=== PATIENT | female | born 1940 | race Caucasian/White ===

== ENCOUNTER 2019-02-02 11:10 | Emergency (ER) | payer MEDICARE, OTHER, SELFPAY ==
[2019-02-02 11:23] VITALS: BP 170/78; PULSE 66; RESP 20; TEMP 36.3; O2SAT 98
--- NOTE | 2019-02-02 11:34 | ED.GENADULT ---
HPI - General Adult General Chief complaint: Dizziness Stated complaint: dizzy Time Seen by Provider: 02/02/19 11:26 Source: patient Mode of arrival: ambulatory Limitations: no limitations History of Present Illness HPI narrative: Patient is a 78-year-old female sent over from her primary doctor's office for ?tests ?patient does not know specifically what tests they were requesting. She went to her primary doctor this morning because she was feeling lightheaded. She also has had for the past several weeks if not months lower extremity weakness and left-sided weakness. She also states that she has had the lightheadedness for the past several weeks as well. She has had bilateral lower extremity weakness for years. She states she normally does water aerobics and she noticed yesterday she was having more difficulty doing this. This is what prompted her to come to the primary doctor's office this morning. With regard to the lightheadedness patient does not describe any positional component. Does not have a room spinning component. No chest pain or shortness of breath. Has never passed out. Related Data Home Medications Medication Instructions Recorded Confirmed aspirin 81 mg PO DAILY #0 04/22/12 02/02/19 acetaminophen 500 mg PO BID #0 05/24/16 10/15/18 benzocaine [Anbesol (benzocaine)] 10 % MUCOUS MEMBRANE #0 05/24/16 10/15/18 diphenhydramine HCl [Benadryl 25 mg PO HS #0 05/24/16 10/15/18 Allergy] Respironics System One 60 Series #1 ea 10/15/18 10/15/18 BIPAP bupropion HCl 150 mg PO BID 02/02/19 02/02/19 carvedilol 6.25 mg PO BID 02/02/19 02/02/19 levothyroxine [Synthroid] 88 mcg PO DAILY 02/02/19 02/02/19 metformin 500 mg PO BID 02/02/19 Allergies Allergy/AdvReac Type Severity Reaction Status Date / Time Sulfa (Sulfonamide Allergy Severe Unkown Verified 10/15/18 14:44 Antibiotics) [SULFA (SULFONAMIDE ANTIBIOTICS)] niacin [NIACIN] AdvReac Mild FLUSH Verified 10/15/18 14:44 Review of Systems Constitutional Denies fatigue, Denies fever(s), Denies headache(s) and Reports weakness ENT Ears, Nose, Mouth, and Throat: Denies vertigo, Reports dizziness, Denies headache(s) and Reports disequilibrium Cardiovascular Denies chest pain and Denies dyspnea Respiratory Denies cough and Denies dyspnea Gastrointestinal Gastrointestinal: Denies abdominal pain, Denies nausea and Denies vomiting Musculoskeletal Denies myalgias, Denies arthralgias, Denies muscle cramps and Reports muscle weakness Integumentary/Breasts Denies lesions and Denies rash Neurologic Denies behavioral changes, Denies confusion, Denies vertigo, Reports dizziness, Denies headache(s), Denies paresthesias, Reports disequilibrium and Reports weakness Psychiatric Denies behavioral changes and Denies confusion Endocrine Denies fatigue Hematologic/Lymphatic Denies easy bleeding and Denies easy bruising Allergic/Immunologic Denies urticaria [facility] Medical History Dyslipidemia (Chronic) H/O post-polio syndrome (Chronic) HTN (hypertension) (Chronic) Obstructive sleep apnea of adult (Chronic) Osteoarthritis (Chronic) Social History occupational status: previously employed Smoking Status: Never smoker alcohol intake: never substance use type: does not use caffeine: Yes (1 cup daily) Type(s) of exercise: swimming frequency: 3-4 times per week Exam Initial Vital Signs Initial Vital Signs: Vital Signs Temperature 97.4 F L 02/02/19 11:23 Pulse Rate 66 02/02/19 11:23 Respiratory Rate 20 02/02/19 11:23 Blood Pressure 170/78 H 02/02/19 11:23 Pulse Oximetry 98 02/02/19 11:23 Const General: cooperative, comfortable, well developed, well groomed and No acute distress Orientation: alert, awake and oriented x3 Eyes Pupils: PERRL EOM: EOM intact bilaterally Resp Effort & Inspection: normal respiratory effort Auscultation: clear to auscultation bilaterally Cardio Rate: regular rate Rhythm: regular rhythm Pulses: radial pulses present GI Inspection: non-distended Palpation: soft and No tender Skin Lesions: no lesions Rashes: no rashes Neuro General: alert, awake and oriented x3 Cranial Nerves: CN's II-XI intact bilaterally Cognition: normal cognition Speech: speech normal Sensory Exam: no sensory deficits noted Coordination: [id number] test normal Other: 5/5 bilateral upper extremity. 5/5 right lower extremity 4/5 left lower extremity Extrem General: normal to inspection and capillary refill normal Psych Appearance: grossly normal and well kempt Scores GCS Lonnie coma scale eye opening: Spontaneous Lonnie coma scale verbal response: Orientated Lonnie coma scale motor response: Obey commands Lonnie coma scale total score: 15 NIH Stroke Scale Level of Conciousness: Alert, keenly responsive Ask month/age: Answers both questions correctly. Open/close eyes, close hand: Performs both tasks correctly Best gaze horizontal: Normal Visual burris: No visual loss Facial palsy: Normal symetrical movement Left arm drift: No drift for full 10 sec Right arm drift: No drift for full 10 sec Left leg drift: No drift for full 10 sec Right leg drift: No drift for full 10 sec Limb ataxia: Absent Sensory on face/arms/legs: Normal, no sensory loss Best language: No aphasia, normal Dysarthria: Normal Extinction or inattention: No abnormality Total NIH Stroke scale score: 0 Course Orders Ordered: ED Orders 02/02/19 11:35 EKG-12 Lead Stat 02/02/19 11:44 CT head/brain wo con Stat 02/02/19 12:35 Complete Blood Count AUTO DIFF Stat Comprehensive Metabolic Panel Stat Creatine Kinase Stat Lipase Stat Thyroid Stimulating Hormone Stat Vital Signs - 8 hr 02/02/19 11:23 02/02/19 12:30 02/02/19 13:30 Temperature 97.4 F L Pulse Rate 66 65 67 Respiratory Rate 20 21 20 Blood Pressure 170/78 H Blood Pressure [Left Arm] 144/53 H 155/64 H Pulse Oximetry 98 96 Medical Decision Making Lab Data Lab results reviewed: Yes I reviewed the patient's lab results. Result diagrams: 02/02/19 12:35 02/02/19 12:35 Lab Results 02/02/19 02/02/19 02/02/19 Range/Units 12:35 12:35 12:35 WBC 7.1 (4.5-11.0) X10^3/uL RBC 4.32 (4.0-5.2) X10^6/uL Hgb 13.6 (12.0-16.0) g/dL Hct 41.2 (36-46) % MCV 95.5 (80-100) fL MCH 31.6 (26-34) PG MCHC 33.1 (30-36) % RDW 12.9 (11.6-14.8) % Plt Count 241 (150-400) X10^3/uL Neut % (Auto) 62.2 (50-75) % Lymph % (Auto) 27.8 (25-40) % Maverick % (Auto) 8.1 (3-14) % Eos % (Auto) 1.4 L (2-4) % Baso % (Auto) 0.5 (0-2) % Neut # (Auto) 4400 (7791-1100) /uL Lymph # (Auto) 2000 (6595-6713) /uL Maverick # (Auto) 600 (0-900) /uL Eos # (Auto) 100 (0-450) /uL Baso # (Auto) 0 (0-100) /uL Sodium 142 (137-145) mmol/L Potassium 4.2 (3.4-5.1) mmol/L Chloride 105 (98-107) mmol/L Carbon Dioxide 29 (22-32) mmol/L BUN 18 H (7-17) mg/dL Creatinine 1.10 H (0.52-1.04) mg/dL Estimated GFR 48.0 L (>60) mL/min BUN/Creatinine Ratio 16.4 (6-22) Glucose 89 (80-110) mg/dL Calcium 10.5 H (8.4-10.2) mg/dL Total Bilirubin 0.5 (0.2-1.3) mg/dL AST 20 (14-36) IU/L ALT 17 (9-52) IU/L Alkaline Phosphatase 71 (38-126) U/L Total Creatine Kinase 28 L (30-135) U/L Total Protein 7.3 (6.3-8.2) g/dL Albumin 4.3 (3.5-5.0) g/dL Globulin 3.0 (1.7-4.1) g/dL Albumin/Globulin Ratio 1.4 (1.0-2.8) Lipase 56 (23-300) U/L TSH 0.74 (0.47-4.68) uIU/mL Imaging Data CT scan - head: Radiologist's impression: [address] [address] [address] Scan Report Signed Patient: Anna Pinto [facility] BRANSON#: [id number] : 1940Acct:[id number] Age/Sex: 78 / FDate of Service: 02/02/19 Loc: ED Accession Number: [id number] Procedure: CT head/brain wo con Ordering Provider: Salvador Hernandez D.O. PROCEDURE: CT HEAD/BRAIN WO CON INDICATIONS: Dizziness with L sided weakness TECHNIQUE: Noncontrast 4.5 mm thick angled axial sections acquired from the foramen magnum to the vertex, with coronal and sagittal reformats. For radiation dose reduction, the following was used: automated exposure control, adjustment of mA and/or kV according to patient size. COMPARISON: [facility], CT, HEAD WITHOUT CONTRAST, 04/22/2012, 18:16. FINDINGS: Image quality: Excellent. CSF spaces: Basal cisterns are patent. No extra-axial fluid collections. The ventricles are symmetric in size and shape. Brain: No intracranial bleeds or masses. There is mild cerebral volume loss for age, with resultant ventricular and sulcal prominence. There are minimal periventricular and deep white matter chronic small vessel ischemic changes. There is intracranial internal carotid artery atherosclerosis. Skull and face: Calvarium and visualized facial bones appear intact, without suspicious lesions. Sinuses: Visualized sinuses and mastoids are clear. IMPRESSION: 1. No acute intracranial abnormalities. Dictated by: Cesario Roberts M.D. on 02/02/2019 at 12:18 Approved by: Cesario Roberts M.D. on 02/02/2019 at 12:19 ECG Data Attestation: I personally reviewed and interpreted this ECG as follows: Prior ECG tracings: not available for review Interpretation: Sinus rhythm Ventricular rate is 63 Normal axis Normal QRS Normal QTC Nonspecific ST T wave changes MDM Narrative Medical decision making narrative: Workup here in the emergency department unremarkable. Her presenting symptoms to include her lower extremity weakness and her dizziness or not new. She has had them for at least the past several months and some symptoms for the past several years. Her head CT was unremarkable. I discussed that she needed to follow up with her primary doctor discuss the indications for referral to see Neurology. Will hold on further workup for now. She expressed understanding and agreement with plan. Discharge Plan Departure Patient Disposition: Home Clinical Impression: Weakness Instructions: DI for Muscle Weakness Activity Restrictions/Additional Instructions: Recommend you talk with your primary doctor about further workup and to discuss the indications for referral to see Neurology. Continue all of your medications as directed. Return to the emergency department for any new or worsening symptoms Prescriptions: No Action aspirin 81 mg Tablet,Delayed Release (Dr/Ec) 81 mg PO DAILY Qty: 0 RF: 0 acetaminophen 325 MG tablet 500 mg PO BID Qty: 0 RF: 0 diphenhydramine HCl [Benadryl Allergy] 25 MG tablet 25 mg PO HS Qty: 0 RF: 0 benzocaine [Anbesol (benzocaine)] 10 % gel 10 % Mucous Membrane Qty: 0 RF: 0 metformin 500 mg tablet 500 mg PO BID RF: 0 bupropion HCl 150 mg tablet sustained-release 12 hr 150 mg PO BID RF: 0 carvedilol 6.25 mg tablet 6.25 mg PO BID RF: 0 levothyroxine [Synthroid] 88 mcg tablet 88 mcg PO DAILY RF: 0 Respironics System One 60 Series BIPAP Qty: 1 RF: 0 Referrals: Jarvis Renee MD [Primary Care Provider] -
--- NOTE | 2019-02-02 11:44 | DI.CT.S_ITS ---
PROCEDURE: CT HEAD/BRAIN WO CON INDICATIONS: Dizziness with L sided weakness TECHNIQUE: Noncontrast 4.5 mm thick angled axial sections acquired from the foramen magnum to the vertex, with coronal and sagittal reformats. For radiation dose reduction, the following was used: automated exposure control, adjustment of mA and/or kV according to patient size. COMPARISON: [facility], CT, HEAD WITHOUT CONTRAST, 04/22/2012, 18:16. FINDINGS: Image quality: Excellent. CSF spaces: Basal cisterns are patent. No extra-axial fluid collections. The ventricles are symmetric in size and shape. Brain: No intracranial bleeds or masses. There is mild cerebral volume loss for age, with resultant ventricular and sulcal prominence. There are minimal periventricular and deep white matter chronic small vessel ischemic changes. There is intracranial internal carotid artery atherosclerosis. Skull and face: Calvarium and visualized facial bones appear intact, without suspicious lesions. Sinuses: Visualized sinuses and mastoids are clear. IMPRESSION: 1. No acute intracranial abnormalities. Dictated by: Cesario Roberts M.D. on 02/02/2019 at 12:18 Approved by: Cesario Roberts M.D. on 02/02/2019 at 12:19
--- NOTE | 2019-02-02 12:25 | PC.NURSE ---
pt reports, intermittent dizziness today, generalized weakness for couple of years, now worsen the last couple of weeks. worsening weakness bilateral lower legs. denies chills,fever,vomiting or diarrhea.
[2019-02-02 12:30] VITALS: BP 144/53; PULSE 65; PULSE 67; RESP 18; RESP 21; O2SAT 96
[2019-02-02 12:47] LABS: Add Manual Diff / Slide Review NO; Basophils Absolute Auto 0 /uL (0-100); Basophils Percent Auto 0.5 % (0-2); Eosinophils Absolute Auto 100 /uL (0-450); Eosinophils Percent Auto 1.4 % (2-4); Hematocrit 41.2 % (36-46); Hemoglobin 13.6 g/dL (12.0-16.0); Lymphocytes Absolute Auto 2000 /uL (1100-4500); Lymphocytes Percent Auto 27.8 % (25-40); Mean Corpuscular HGB Conc 33.1 % (30-36); Mean Corpuscular Hemoglobin 31.6 PG (26-34); Mean Corpuscular Volume 95.5 fL (80-100); Monocytes Absolute Auto 600 /uL (0-900); Monocytes Percent Auto 8.1 % (3-14); Neutrophils Absolute Auto 4400 /uL (1500-7000); Neutrophils Percent Auto 62.2 % (50-75); Platelet Count 241 X10^3/uL (150-400); Red Blood Cell Count 4.32 X10^6/uL (4.0-5.2); Red Cell Distribution Width 12.9 % (11.6-14.8); White Blood Cell Count 7.1 X10^3/uL (4.5-11.0)
[2019-02-02 12:58] LABS: Alanine Aminotransferase 17 IU/L (9-52); Albumin 4.3 g/dL (3.5-5.0); Albumin Globulin Ratio 1.4 (1.0-2.8); Alkaline Phosphatase 71 U/L (38-126); Aspartate Aminotransferase 20 IU/L (14-36); BUN Creatinine Ratio 16.4 (6-22); Bilirubin Total 0.5 mg/dL (0.2-1.3); Blood Urea Nitrogen 18 mg/dL (7-17); Calcium 10.5 mg/dL (8.4-10.2); Carbon Dioxide 29 mmol/L (22-32); Chloride 105 mmol/L (98-107); Creatine Kinase 28 U/L (30-135); Glucose 89 mg/dL (80-110); HEMOLYSIS < 15 (0-50); Lipase 56 U/L (23-300); Potassium 4.2 mmol/L (3.4-5.1); Sodium 142 mmol/L (137-145); Total Protein 7.3 g/dL (6.3-8.2)
[2019-02-02 13:30] VITALS: BP 155/64; PULSE 67; RESP 20
[2019-02-02 13:39] LABS: Thyroid Stimulating Hormone 0.74 uIU/mL (0.47-4.68)
== END 2019-02-02 14:19 | disposition home or self-care (01) ==
PROVIDERS: Emergency Provider Emergency Medicine; Family Provider Family Medicine; PCP Family Medicine
DX: R53.1 Weakness (principal); R42 Dizziness and giddiness; I10 Essential (primary) hypertension
CPT/HCPCS: 36415; 70450; 80053; 82550; 83690; 84443; 85025; 93005; 99283; 99285

== ENCOUNTER → 2021-01-31 14:38 | Outpatient (CLI) | payer MEDICARE, OTHER, SELFPAY ==
[2021-01-31 14:49] LABS: Bacteria Urine None Seen; RBC Urine None Seen (0-5/HPF)
[2021-01-31 15:26] LABS: Add Manual Diff / Slide Review NO; Basophils Absolute Auto 0 /uL (0-100); Basophils Percent Auto 0.5 % (0-2); Eosinophils Absolute Auto 200 /uL (0-450); Eosinophils Percent Auto 3.9 % (2-4); Hematocrit 40.5 % (36-46); Hemoglobin 13.2 g/dL (12.0-16.0); Lymphocytes Absolute Auto 1600 /uL (1100-4500); Lymphocytes Percent Auto 26.2 % (25-40); Mean Corpuscular HGB Conc 32.7 % (30-36); Mean Corpuscular Hemoglobin 30.6 PG (26-34); Mean Corpuscular Volume 93.8 fL (80-100); Monocytes Absolute Auto 500 /uL (0-900); Neutrophils Absolute Auto 3700 /uL (1500-7000); Neutrophils Percent Auto 60.4 % (50-75); Platelet Count 296 X10^3/uL (150-400); Red Blood Cell Count 4.32 X10^6/uL (4.0-5.2); Red Cell Distribution Width 13.9 % (11.6-14.8); White Blood Cell Count 6.1 X10^3/uL (4.5-11.0)
[2021-01-31 15:32] LABS: Appearance Urine UA CLEAR; Bilirubin Urine UA NEGATIVE (NEGATIVE); Color Urine UA YELLOW; Glucose Urine UA NEGATIVE (Negative); Ketones Urine UA TRACE (NEGATIVE); Leukocyte Esterase Urine UA TRACE (NEGATIVE); Nitrite Urine UA NEGATIVE (Negative); Occult Blood Urine UA NEGATIVE (Negative); Protein Urine UA TRACE (Negative); Urobilinogen Urine UA 0.2 E.U./dL (0.2)
[2021-01-31 15:50] LABS: Culture Indicated Urine Cult Not Indicated; Squamous Epithelial Cell Urine 5-10 /HPF (0-5/HPF); WBC Urine 5-10/HPF (0-5/HPF)
[2021-01-31 15:51] LABS: Hemoglobin A1C% w Est Avg Glu 6.8 % (4.0-6.0)
[2021-01-31 17:54] LABS: BUN Creatinine Ratio 14.5 (6-22); Blood Urea Nitrogen 17 mg/dL (7-17); Calcium 9.8 mg/dL (8.4-10.2); Carbon Dioxide 28 mmol/L (22-32); Chloride 105 mmol/L (98-107); Estimated Glomerular Filt Rate 44.5 mL/min (>60); Glucose 108 mg/dL (80-110); HEMOLYSIS < 15 (0-50); Potassium 4.7 mmol/L (3.4-5.1); Sodium 141 mmol/L (137-145)
== END ==
PROVIDERS: Family Provider Family Medicine; PCP Family Medicine; Referring Provider Orthopaedic Surgery; Visit Provider Orthopaedic Surgery
DX: Z01.818 Encounter for other preprocedural examination (principal); I10 Essential (primary) hypertension; R73.9 Hyperglycemia, unspecified; Z01.812 Encounter for preprocedural laboratory examination; N39.0 Urinary tract infection, site not specified
CPT/HCPCS: 36415; 80048; 81001; 83036; 85025; 93005; 93010

== ENCOUNTER → 2021-03-05 12:55 | Outpatient (CLI) | payer MEDICARE, OTHER, SELFPAY ==
[2021-03-05 15:38] LABS: COVID19 -Nasal RAPID Negative (Negative)
== END ==
PROVIDERS: Family Provider Family Medicine; PCP Family Medicine; Visit Provider Physician Assistant
DX: Z01.812 Encounter for preprocedural laboratory examination (principal); Z20.822 Contact with and (suspected) exposure to COVID-19
CPT/HCPCS: 87635

== ENCOUNTER 2021-03-06 08:33 | Inpatient (IN) | payer MEDICARE, OTHER, SELFPAY ==
[2021-02-28 15:08] VITALS: BMI 33.6
[2021-03-06] VITALS (18 sets, daily range): BP systolic 110–184; BP diastolic 46–89; PULSE 65–89; RESP 8–22; TEMP 35.8–36.7; O2SAT 95–100; BMI 33.6
--- NOTE | 2021-03-06 06:36 | DI.RAD.S_ITS ---
PROCEDURE: XR KNEE RT 1TO2V INDICATIONS: TKA TECHNIQUE: 2 view(s) of the knee acquired. COMPARISON: None. FINDINGS: Bones: Patient is status post knee joint arthroplasty. Hardware components are in expected positions. Visualized bony structures are intact. Soft tissues: Overlying postoperative changes are noted. IMPRESSION: Expected postsurgical change for right knee arthroplasty. Dictated by: Kyleigh Vicente MD, PhD on 03/06/2021 at 13:26 Approved by: Kyleigh Vicente MD, PhD on 03/06/2021 at 13:26
[2021-03-06] MEDS: ACETAMINOPHEN 325 MG TABLET 975 MG PO (08:47)
[2021-03-06] MEDS: VANCOMYCIN 1,000 MG/200 ML PIGGYBACK 200 MG IV (08:47)
[2021-03-06] MEDS: PREGABALIN 75 MG CAPSULE PO (08:47)
[2021-03-06] MEDS: CELECOXIB 200 MG CAPSULE PO (08:47)
[2021-03-06] MEDS: LACTATED RINGERS 1,000 ML 42 ML IV ×2 (08:49→11:50)
--- NOTE | 2021-03-06 10:07 | PM.PREOP ---
Pre-operative Note COVID-19 COVID-19 status: Negative Interval Note History & Physical reviewed/Exam performed by Physician: Yes Changes to H&P: No
--- NOTE | 2021-03-06 10:08 | PM.OP.1 ---
Operative Date/Time/Diagnoses Date of procedure: 03/06/21 Time of procedure: 11:00 Pre-op diagnosis: Right total knee arthroplasty Post-op diagnosis: same Procedure & Clinicians Procedure: Right total knee arthroplasty Same procedure as scheduled: Yes Indications: The patient has had progressively worsening right knee pain with radiographic changes consistent with arthritis. Non-operative management has failed and the patient has requested total knee replacement. The risks, benefits and alternatives to surgery were discussed with the patient prior to proceeding. Risks discussed included, but were not limited to, failure to relieve pain, stiffness, infection, nerve damage, deep venous thrombosis, pulmonary embolism, stroke, coma, heart attack, permanent paralysis and , as well as the potential need for eventual revision of the prosthetic. Surgeon: Inga Hood Refinery Operator Coking: Lan Lan Anesthesia Type: Spinal and Peripheral nerve block Operative Notes Findings: Severe right knee osteoarthritis, good stability neutral alignment, soft bone Closure Type: primary Specimen(s): none sent Prosthetic devices, grafts, tissues, transplants, or devices: [employer]hew Ruddyney BCS 2 size 3 femur, size 2 tibia, +9 poly, a 32 x 7.5 mm patella Applied: drain(s) Estimated Blood Loss (mL): 250 Blood products transfused: none Tourniquet time (min): 57 Procedure in detail: The patient was seen in the pre-operative area, where the patient identified the right knee as the operative site and this was marked with my initials. The patient received pre-operative antibiotics, and was taken to the operating room and placed on the operative table in the supine position. After satisfactory anesthesia, a double end chucking machine operator out was performed. The right leg was encircled with a tourniquet about the proximal thigh, and the leg was prepared from the toes to the tourniquet with ChloroPrep in the usual fashion and draped through sterile drapes. The leg was elevated and exsanguinated with Eschmark bandage and the tourniquet inflated to [250] mmHg pressure. The knee was approached through an approximately 18 cm incision centered over the patella and carried into the knee through a medial parapatellar arthrotomy. A portion of the medial and lateral meniscus was resected. Soft tissue was carefully mobilized around the patella the patella was measured with a caliper. Bone was resected from the patella and the patellar height was reconstituted with up an appropriate sized patellar component. A cover was then placed on the patella. A small amount of additional medial and lateral meniscus was resected. The visionare guide fit well to the distal femur. It looked like an appropriate distal femoral cut and the cut was made without difficulty. The rotation was assessed and the appropriate size femoral guide was placed on the distal femur and finishing cuts were made. There was no evidence of notching. The anterior, posterior and chamfer cuts were then made. The posterior osteophytes and soft tissues were then removed. The posterior capsule was injected with part of a mixture of 60 ml 0.25% Marcaine mixed with 20 ml Exparel for post operative pain control. The remainder of this mixture was injected into the capsule and subcutaneous tissues during cement curing. The tibia was prepared and the visionaire guide fit well to the distal tibia. The rotation was assessed. The patient was placed in extension residual medial and lateral meniscus as well as any residual bone was carefully resected. [No] additional tibia was resected. Hemostasis was achieved especially posteriorly. Additional local was injected into the posterior capsule. The extension gap was assessed and additional releases for gap balancing were performed as necessary. It was checked with the gap public health advisor. The femoral component was trial was placed and the notch was finished. Trial tibial and femoral components were then placed and the knee placed through a range of motion. Range of motion was [0-130], with good stability throughout the range. The trials were then removed, and the tibia was finished. The bone was prepared with pulsatile lavage, and dried with a sponge. Cement was applied and the final prosthetics placed. Excess cement was removed during and after cement curing. A brief Betadine soak was performed. After confirming there was no extruded cement posteriorly, the final tibial insert was placed. The knee was copiously irrigated and the tourniquet deflated. Hemostasis was obtained with the Bovie. A drain was placed and brought out superolaterally. The capsule was closed with interrupted Vicryl suture. The subcutaneous layer was closed with barbed sutures, and the skin with a running 3-0 V-Lock suture and Surgical glue. An Aquacel Ag dressing was applied and the patient was taken to recovery having tolerated the procedure well. Complications: none Post-operative Condition: stable Disposition: Acute Care Plan for aftercare: The patient will be maintained on a standard total knee replacement protocol with weight bearing as tolerated. The patient will receive aspirin and sequential compression devices for DVT prophylaxis. The patient will be discharged home when safe for the home environment. She has multiple medical problems including Parkinson's and sleep apnea and likely will require inpatient admission. She needs physical therapy to work on progressive mobilizing that she can be weight-bearing as tolerated on the right lower extremity.
--- NOTE | 2021-03-06 10:31 | PM.HP.1 ---
History of Present Illness History of Present Illness Chief complaint: OPB Narrative: Severe right knee pain. This is a patient with complex history with history of Parkinson's and also the polio. She notes progressive right knee pain is brought to the operating for right total knee arthroplasty. It does significantly interfere with her overall lifestyle and activities. Please see attached note from 01/31/2021. Patient History Medical History Anxiety Autoimmune disorder Depression Diabetes Dyslipidemia H/O post-polio syndrome HTN (hypertension) Hypothyroid Obstructive sleep apnea of adult Osteoarthritis Parkinson's disease (2019) Weakness Surgical History H/O cervical spinal arthrodesis History of cataract removal with insertion of prosthetic lens History of surgery (02/2016) History of tonsillectomy Status post laparoscopic cholecystectomy Status post trigger finger release Family & Social History Social History: household members none,other Prior Living Arrangements Long-Term Facility Safety & Behavioral: Feels Safe in Current Yes Environment Been Physically Hurt or No Threatened By a Person Suicidal Ideation Description None Suicide Plan Description No Plan Tobacco & Substance use: Smoking Status Never smoker alcohol intake never Substance Use Type does not use Meds Home Medications and Allergies Home Medications Medication Instructions Recorded Confirmed Type aspirin 81 mg tablet,delayed 81 mg PO DAILY #0 04/22/12 03/06/21 History release acetaminophen 325 mg tablet 500 mg PO BID PRN #0 05/24/16 03/06/21 History Respironics System One 60 Series #1 ea 10/15/18 05/19/19 History BIPAP bupropion HCl 150 mg tablet,12 hr 150 mg PO BID 02/02/19 03/06/21 History sustained-release levothyroxine 88 mcg tablet 88 mcg PO DAILY 02/02/19 03/06/21 History carbidopa 25 mg-levodopa 100 mg 1 tab PO TID 02/27/21 03/06/21 History tablet Allergies Allergy/AdvReac Type Severity Reaction Status Date / Time Sulfa (Sulfonamide Allergy Severe Unknown-occured Verified 02/27/21 10:06 Antibiotics) >50 years [SULFA (SULFONAMIDE ago ANTIBIOTICS)] niacin [NIACIN] AdvReac Mild FLUSH Verified 05/19/19 09:44 Review of Systems Review of Systems Narrative: No recent changes review systems otherwise negative. Exam Vital Signs (past 8 hours): - 03/06/21 09:00 Temperature 98.1 F Pulse Rate 89 Respiratory Rate 18 Blood Pressure 149/84 H Pulse Oximetry 97 Oxygen Delivery Method Room Air Narrative Exam Narrative: HEENT is benign, lungs are clear cor regular rate and rhythm abdomen benign right lower extremity tender to palpation along the medial joint line varus deformity, moderate crepitation with range of motion of the right knee, skin intact, neurologically intact except for bilateral lower extremity numbness. Assessment & Plan Assessment & Plan narrative: Severe right knee osteoarthritis. Her x-rays show severe tricompartment arthritis. She has failed extensive conservative treatment and I have recommended a right total knee arthroplasty. Procedure alternatives risks benefits and complications were discussed in detail. She has multiple medical problems including Parkinson's disease and a history of polio which I anticipate will make her rehab somewhat more difficult. She is quite motivated and would like to return to her independent living situation as soon as possible. I anticipate she likely will require inpatient admission due to her medical problems including Parkinson's, diabetes, a history of sleep apnea and a history of polio.
[2021-03-06] MEDS: CEFAZOLIN 1 GM VIAL 2 GM IV ×2 (11:22→20:25)
[2021-03-06] MEDS: TRANEXAMIC ACID 1,000 MG VIAL 2000 MG INJ ×2 (11:25→12:45)
--- NOTE | 2021-03-06 11:37 | SUR.OPER ---
Supine on padded OR bed. Pillow under head, arms secured on padded armboards <90 degree abduction. Safety belt across torso. Non-operative leg secured with tape over blanket over lower leg. Operative leg secured in DeMayo/Yaya/Nathe positioner. Foam padded brace at thigh of operative leg.
[2021-03-06] MEDS: BUPIVACAINE 0.25% W/ EPI 30 ML VIAL 60 ML INJ (11:45)
[2021-03-06] MEDS: BUPIVACAINE LIPOSOME 266 MG/20 ML VIAL INJ (11:46)
[2021-03-06] MEDS: SODIUM CHLORIDE IRRIG SOLUTION 250 ML, POVIDONE-IODINE SPONGE STICKS 1 APPLIC IRR (11:47)
--- NOTE | 2021-03-06 13:02 | SUR.OPER ---
Hemovac drain to be clamped for 2 hours starting at 1255 per Lan Lan,PAC. CHUCK WAGON COOKELVA emanuel.
[2021-03-06] MEDS: fentaNYL 100 MCG/2 ML INJ IV ×2 (13:04→13:14)
[2021-03-06] MEDS: OXYCODONE/ACETAMINOPHEN 5/325 TABLET 1 TAB PO (13:19)
[2021-03-06] MEDS: HYDROMORPHONE 2 MG INJ IV (13:34)
[2021-03-06] MEDS: KETOROLAC 30 MG/ML VIAL 15 MG IV (13:50)
[2021-03-06] MEDS: LORazepam 2 MG/ML INJ 0.5 MG IV (14:23)
--- NOTE | 2021-03-06 14:27 | SUR.PHASEI ---
Addendum entered by Jaqueline León R.N. 03/06/21 15:21: 1452: REPORT GIVEN TO MIGUEL Hare RN ALL QUESTIONS ANSWERED TO SATISFACTION, HE MET US AT BEDSIDE FOR FACE TO FACE, HV UNCLAMPED AT THAT TIME, PATIENT. SCD'S ON. VSS. 2L/NC. CALL LIGHT IN REACH. Original Note: PACU: PATIENT HAD PAIN CONTROL ISSUES AND ANXIETY WHICH HAD RESOLVED, PATIENT APPEARED TO BE RESTING COMFORTABLY. THEN AWOKE AGAIN TEARFUL, SAYING SHE SEES HER DTR CARMENCITA, WHO AFTER BRAIN SURGERY 10 YRS AGO. SHE THEN STARTED C/O OF CHEST PAIN 11/27. EKG ORDERED, CHARGE NURSE NOTIFIED. EKG NEGATIVE, PASSED RESULT INTO OR SUITE FOR DR. Beasley AND DR. WALLIS. CALLED INTO TO GIVE REPORT TO COMPANY MARKERTOMMIE NICOLE RN. NOTIFIED OF BP 177/88 100% ON 2L/NC. HR 69. 5/10 STERNAL, NON- RADIATING. NOTIFIED HADN'T GIVEN ORDERED DOSE OF ATIVAN YET, PATIENT HAD FOUND RESTING. NO NEW ORDERS, OKAY TO GIVE ATIVAN ORDERED. SEE EMAR. PATIENT NOW WITH EYES OPEN, TAKING ICE CHIPS AND OJ.
--- NOTE | 2021-03-06 14:53 | PC.NURSE ---
Day shift: Pt on unit from PACU at approx 1453. David-vac unclamped per MD at this time.
[2021-03-06] MEDS: ACETAMINOPHEN 325 MG TABLET 650 MG PO ×2 (15:35→20:09)
[2021-03-06] MEDS: LACTATED RINGERS 1,000 ML 100 ML IV (15:35)
[2021-03-06] MEDS: CARBIDOPA-LEVODOPA 25/100 TABLET 1 EACH PO ×2 (15:35→20:24)
[2021-03-06] MEDS: OXYCODONE IR 5 MG TABLET PO (15:36)
[2021-03-06] MEDS: IBUPROFEN 400 MG TABLET PO ×2 (16:25→20:24)
[2021-03-06] MEDS: ASPIRIN EC 81 MG TABLET PO (20:23)
[2021-03-06] MEDS: buPROPion SR 150 MG TAB PO (20:24)
[2021-03-06] MEDS: DOCUSATE 100 MG CAPSULE PO (20:25)
[2021-03-06] MEDS: TRAMADOL 50 MG TABLET PO (21:49)
[2021-03-07] VITALS: BP 125/74; PULSE 70; RESP 16; TEMP 36.1
[2021-03-07] MEDS: IBUPROFEN 400 MG TABLET PO ×4 (00:22→12:36)
[2021-03-07] MEDS: LACTATED RINGERS 1,000 ML 100 ML IV (02:13)
[2021-03-07] MEDS: CEFAZOLIN 1 GM VIAL 2 GM IV (02:23)
[2021-03-07 05:17] VITALS: BP 139/70; PULSE 71; RESP 16; TEMP 36.2
[2021-03-07 05:41] LABS: Hematocrit 35.8 % (36-46); Hemoglobin 11.7 g/dL (12.0-16.0)
[2021-03-07] MEDS: LEVOTHYROXINE 88 MCG TABLET PO (06:04)
--- NOTE | 2021-03-07 06:24 | PC.NURSE ---
Alert and oriented X3 able to make needs known, calm and cooperative with all care. Calls appropriately however, bed alarm set for safety. VSS, RA sats 99% LS CTA. Up to BSC with 1 person SBA to BSC using FWW. Voiding adequate amounts of clear yellow UOP. Moderate formed brown BM this am. R TKA covered TENNILLE wrap with no visiable drainage, Hemovac with 30 ml. Pain managed with Ice, and Ibuprofen this shift, pain temporarily increases with movement but resolved quickly. CMS intact. Pt is planning to return to assisted facility
[2021-03-07 08:00] VITALS: BP 155/82; PULSE 75; RESP 16; TEMP 35.6; O2SAT 94
[2021-03-07] MEDS: ASPIRIN EC 81 MG TABLET PO (08:01)
[2021-03-07] MEDS: ACETAMINOPHEN 325 MG TABLET 650 MG PO (08:01)
[2021-03-07] MEDS: CARBIDOPA-LEVODOPA 25/100 TABLET 1 EACH PO ×2 (08:01→12:35)
[2021-03-07] MEDS: buPROPion SR 150 MG TAB PO (08:02)
[2021-03-07] MEDS: DOCUSATE 100 MG CAPSULE PO (08:02)
--- NOTE | 2021-03-07 08:33 | P.DS_ITS ---
History of Present Illness History of Present Illness Date Patient Seen: 03/07/21 Time Patient Seen: 08:33 Chief complaint: Knee pain Narrative: Patient's pain is [id number]. Denies fever or chills. No nausea or vomiting. Discharge Providers Provider Date of admission: 03/06/21 08:33 Discharge Date: 03/07/21 Primary care physician: Jarvis Renee MD Consults: 02/27/21 11:47 Consult to Anesthesiology Routine Comment: Consulting Provider: Anesthesiologist Reason for consultation: PAC courtesy re: Neurology recommendations for anesthesia 03/06/21 06:36 Consult to Anesthesiology Routine Comment: Consulting Provider: Anesthesiologist Reason for consultation: Regional block for post operative pain control 03/06/21 14:52 Consult to Discharge Planning Routine Comment: Consult to Physical Therapy Evaluate & Treat Comment: Physician Instructions: postop TKA protocol Consult to Respiratory Therapy Evaluate & Treat Comment: Physician Instructions: Evaluate and treat 03/06/21 15:21 Consult to Dietitian, Adult Routine Comment: Reason For Exam: low nutritional score Consult to Pastoral Services Routine Comment: per patient Discharge provider: Lan Lan PA-C Summary Hospital Course Discharge Diagnosis: Right knee OA Hospital Course: Procedure: Right total knee arthroplasty Same procedure as scheduled: Yes Indications: The patient has had progressively worsening right knee pain with r adiographic changes consistent with arthritis. Non-operative management has failed and the patient has requested total knee replacement. The risks, benefits and alternatives to surgery were discussed with the patient prior to proceeding. Risks discussed included, but were not limited to, failure to relieve pain, stiffness, infection, nerve damage, deep venous thrombosis, pulmonary embolism, stroke, coma, heart attack, permanent paralysis and , as well as the potential need for eventual revision of the prosthetic. Surgeon: Inga Hood Employee Counselor: Lan Lan Anesthesia Type: Spinal and Peripheral nerve block Operative Notes Findings: Severe right knee osteoarthritis, good stability neutral alignment, soft bone Closure Type: primary Specimen(s): none sent Prosthetic devices, grafts, tissues, transplants, or devices: [employer] BCS 2 size 3 femur, size 2 tibia, +9 poly, a 32 x 7.5 mm patella Applied: drain(s) Estimated Blood Loss (mL): 250 Blood products transfused: none Tourniquet time (min): 57 Patient admitted to the hospital for right knee osteoarthritis. Patient consented for right total knee arthroplasty. Patient underwent right total knee arthroplasty March 06, 2021. Patient back in her room recovering well as in stable condition. Patient resides at [facility]. She is being discharged to [facility] living. Status at Discharge Cognitive/behavioral status at discharge: at baseline, oriented Functional status at discharge: uses cane/walker Overall status at discharge: patient is progressing back to baseline Exam Vital Signs (past 8 hours): - 03/07/21 05:17 Temperature 97.1 F L Pulse Rate 71 Respiratory Rate 16 Blood Pressure 139/70 Oxygen Delivery Method Room Air Oxygen Flow Rate 66 Objective Labs Result Diagrams: 03/07/21 05:20 Labs: Laboratory Results - last 24 hr 03/07/21 05:20 Hgb 11.7 L Hct 35.8 L PFSH Medical History Anxiety Autoimmune disorder Depression Diabetes Dyslipidemia H/O post-polio syndrome HTN (hypertension) Hypothyroid Obstructive sleep apnea of adult Osteoarthritis Parkinson's disease (2018) Weakness Surgical History H/O cervical spinal arthrodesis History of cataract removal with insertion of prosthetic lens History of surgery (02/2016) History of tonsillectomy Status post laparoscopic cholecystectomy Status post trigger finger release Social History household members: none and other occupational status: previously employed Smoking Status: Never smoker alcohol intake: never substance use type: does not use caffeine: Yes (1 cup daily) Type(s) of exercise: swimming (currently on hold) frequency: 3-4 times per week Discharge Assessment & Plan Assessment and Plan Assessment: Patient progressing as expected status post right total knee arthroplasty Plan of Treatment: Weight-bearing as tolerated. Mobilize with physical therapy. Discharged to [facility] assisted living today. Discharge Plan Discharge Plan Patient Disposition: Home Provider Discharge Comment: Patient is being discharged to [facility] Discharge orders & Medications Prescriptions: New acetaminophen 325 mg Tablet 650 mg PO TID Qty: 60 RF: 0 aspirin 81 mg Tablet,Delayed Release (Dr/Ec) 81 mg PO BID Qty: 60 RF: 0 ibuprofen 400 mg Tablet 400 mg PO Q4HR Qty: 60 RF: 0 docusate sodium [DOK] 100 mg Capsule 100 mg PO BID Qty: 30 RF: 0 oxycodone 5 mg Tablet 5 mg PO Q3HR PRN (Reason: Pain, Moderate (4-6)) Qty: 60 RF: 0 Continued bupropion HCl 150 mg tablet sustained-release 12 hr 150 mg PO BID RF: 0 levothyroxine 88 mcg tablet 88 mcg PO DAILY RF: 0 carbidopa-levodopa 25-100 mg Tablet 1 tab PO TID RF: 0 (DME) Respironics System One 60 Series BIPAP Qty: 1 RF: 0 Discontinued aspirin 81 mg Tablet,Delayed Release (Dr/Ec) 81 mg PO DAILY Qty: 0 RF: 0 acetaminophen 325 MG tablet 500 mg PO BID PRN (Reason: Pain) Qty: 0 RF: 0 Follow up/Referrals: Jarvis Renee MD [Primary Care Provider] - Inga Hood MD [Physician] - (2 weeks) Diet/Activity/Treatments Diet: Diet as Tolerated Activity: Weight-bearing as tolerated Cold/Heat Therapy: Apply ice as needed Skin/Wound/Dressing Care Report to your healthcare provider any signs of infection, such as:: chills, fever, increased pain, unusual drainage and unusual redness Dressing: Keep dressing clean and dry Visit Report/Discharge Packet Instructions: DI for Knee Replacement, DI for Prescription Opioid Use Stand Alone Forms: Surgery Discharge Discharge Data Primary Care Provider: Jarvis Renee Quality VTE Deep Vein Thrombosis/Pulmonary Embolism Present on Admission: No
--- NOTE | 2021-03-07 08:41 | CM.DANOTE ---
Addendum entered by Lakshmi Renee R.N. 03/07/21 12:34: Gave Marcelle, patient's nurse, phone number for [facility], nurse Valdez, for report. Marcelle had indicated, after speaking with Courtney, that they do not have their in house therapist on board secondary to COVID exposure in their memory care unit. Marcelle indicated that they use [facility], for patient has used them before. Updated patient on the situation, and let her know that this meeting planner can order her home health with [facility], P.T, and O.T. Called Lan Cassidy PAC, who had seen patient this morning, and left him a message that home health would be ordered, since facility will not be able to use their in home therapy. In the message, also let him know that there is a presigned face to face with Dr. Hood's name on it. Patient is wanting to know what type of care that she would receive there?. Called Courtney nurse at [facility]. Stated that she would do her assessment when she arrives, she has a call button, would not be issued a pendant, which would be extra. She indicated that they can do routine safety checks, and be available if she needs help in the bathroom. Stated, as long as she is not a hoier. Looked at P.T. notes, and she is one person assist. Updated Courtney. Called Silvina at [facility], and gave her update. Faxed her over face sheet, face to face, orders, H&P and DC Summary for nursing. Stated, they may not be able to see her until Friday. Will fax over DC Summary to [facility] as well, including med list. Original Note: DCP: Case received, EMR reviewed and met with patient. Introduced self and role. Was able to obtain information regarding patient's baseline activity level prior to her surgery, as well as her current living situation. DCP assessment completed with information currently available. Patient is an 80 year old female who admitted yesterday morning to the care of the orthopedic team. PCP: Dr. Renee. Payer: confirmed: Medicare/[employer]. Patient came to the hospital via private vehicle for a surgical procedure. Patient had a left total knee arthroplasty. Patient has history of osteoarthritis. She also has history of parkinsons as well as polio. Met with patient in her room. She is pleasant, she was sitting up having her breakfast. Patient is alert and oriented, and confirmed that [facility]. At her baseline, she uses a cane and walker. Their dining room is closed in the main building, due to COVID, so meals are delivered to her. She indicated that she still drives. She has a son in [place] that is supposed to pick her up. She mentioned that she has set up to stay in the assisted living portion or [facility] for the next four days. She is confirmed inpatient, per Terry, in [place]. P: Patient has discharge orders. The plan is for her to go to the assisted living part of [facility] She has not yet worked with P.T, will see how she does. Lakshmi Renee RN/Lawnmower Repair Mechanic
--- NOTE | 2021-03-07 08:45 | PT.IIE ---
Current Diagnoses Unilateral primary osteoarthritis, right knee (03/06/21) Surgery Performed Operation Date: 03/06/21 10:45 Actual Procedures p Total Knee Arthroplasty(Right) - Inga Hood MD Surgical History (Last Reviewed 03/06/21 @ 10:32 by Inga Hood MD) History of cataract removal with insertion of prosthetic lens History of tonsillectomy Status post laparoscopic cholecystectomy Medical History (Last Reviewed 03/06/21 @ 10:32 by Inga Hood MD) Anxiety Autoimmune disorder Depression Diabetes Dyslipidemia H/O post-polio syndrome HTN (hypertension) Hypothyroid Obstructive sleep apnea of adult Osteoarthritis Parkinson's disease (2019) Weakness Physical Therapy Inpatient Evaluation/Re-Eval M1 PT/OT-IP Prior Functional Status Start: 03/07/21 11:19 Freq: NEEDED Status: Active Protocol: Document 03/07/21 08:45 AB (Rec: 03/07/21 11:33 AB [id number]) Medical Review Prior Functional Status Medical History Reviewed Yes Communication able to make needs known but with confusion Mobility and Gait stated that she is independent with all mobilities and ambulation without AD inside her apartment but uses a SPC when she has to go out Social History Household Members none Living Arrangements Assisted Living Number of Stairs To Enter/Railing? pt lives in an independent living facility: [facility] but will be going to the assisted living side for ~ 4 days and can ask for assistance in [facility]; has an elevator to get to her apartment Home Environment Standard Height Toilet,Walk in Shower,Elevator Home Equipment Front Wheel Walker,Four Wheel Walker,Straight Cane,Shower Seat without Backrest,Hand Held Shower,Grab Bars Near Toilet,Grab Bars In Shower M2 PT-IP Current Condition Start: 03/07/21 11:19 Freq: NEEDED Status: Active Protocol: Document 03/07/21 08:45 AB (Rec: 03/07/21 11:33 AB [email or web address]) Physical Therapy Current Condition Current Condition Evaluation Date 03/07/21 Treatment Diagnosis s/p R TKA; difficulty in walking Onset Date 03/06/21 Weight Bearing Status Weight Bearing Status Weight Bear as Tolerated Allowed Weight Bearing Amount (enter % RLE WBAT or #) (%) M3 PT-IP Subjective Start: 03/07/21 11:19 Freq: NEEDED Status: Active Protocol: Document 03/07/21 08:45 AB (Rec: 03/07/21 11:33 AB [email or web address]) Subjective Physical Therapy Visit Type Type Initial Evaluation Visit Start Time 08:45 Visit Stop Time 09:45 Total Visit Minutes 60 Number of MARKETING PROGRAMS MANAGER Visits 0 Physical Therapy Visit Comments Patient Comments pt is agreeable to do PT Therapy Pain Assessment Pain When Pain Assessed At Rest Pain Present Pain Present Pain Reported Location RIGHT KNEE Intensity 3 Scale Used increases to 7/10 with mobility Pain Management Techniques Apply Cold,Distraction, Modification of Treatment,Re- positioning,Timing of Activity with Medications M4 PT-IP Mobility and Gait Start: 03/07/21 11:19 Freq: NEEDED Status: Active Protocol: Document 03/07/21 08:45 AB (Rec: 03/07/21 11:33 AB [id number]) PT-Bed Mobility Assessment Supine to Sit Supine to Sit Standby Assistance,Maximum Assistance Sit to Supine Sit to Supine Standby Assistance PT-Transfer Assessment Sit to and From Stand Sit to and from Stand Contact Guard Assistance,1 Person Assistance,Use of Upper Extremities Equipment Transfer Assistive Device Gait Belt,Front Wheeled Walker Orthotic/Prosthetic Devices or Brace: No Transfers Transfer Destination Chair Transfer Technique ambulated Transfer Ability Level of Assist Contact Guard Assistance,Use of Upper Extremities Comments Mobility Comments completed supine to sit max A with first attempted. instructed to lay back down and completed SBA. educated on supine<>sit technique and completed with SBA. pt was able to sit on EOB SBA. completed sit to stand CGA and step transfer to chair CGA using FWW. agreed to ambulate in room and completed 20 ft using FWW CGA with c/o increrase R knee pain. pt c/o fatigue after ambulation. pt stated that the [facility] has a w/c for her to use to get into her apartment. informed regarding use of bedside commode at night. pt agreed to sit on chair and positioned. call light and table placed within reach. informed pt's son that is present in room with pt to inform [facility] caregivers regarding pt's assistance and equipement needs. son understood and agreed. pt has confusion affecting safety awareness and independence. Gait Assessment Gait Gait Assistance Required: Contact Guard Assist Distance (Feet) 20 Able to Maintain Weight Bearing Status Yes During Gait Assistive Devices Assistive Device Gait Belt,Front Wheeled Walker Orthotic/Prosthetic Devices or Brace: No Gait Deviations General Gait Pattern Antalgic,Decreased Stride Length,Decreased Feet Clearance,Step-to Gait Factors Limiting Gait Function Factors Limiting Gait Function Decreased Activity Tolerance, Decreased Strength,Difficulty Following Directions,Limited Range of Motion,Pain,Poor Balance,Poor Safety Awareness PT-Balance Assessment Sitting Balance and Reactions Static Sitting Balance Ability Good Dynamic Sitting Balance Ability Good Standing Balance and Reactions Static Standing Balance Ability Fair Dynamic Standing Balance Ability Fair Device Used FWW M5 PT-IP Objective Assessments Start: 03/07/21 11:19 Freq: NEEDED Status: Active Protocol: Document 03/07/21 08:45 AB (Rec: 03/07/21 11:33 AB [email or web address]) Orientation Orientation/Cognition Level of Alertness Alert Orientation Name Language Function Ability No Deficits Noted Safety Awareness Decreased Safety Awareness Memory Description Short Term Impaired Comments with confusion Gross Range of Motion Lower Extremity ROM Impairments R knee extension: ~ 15-20 deg less to 0 R knee flexion: ~ 70 deg Strength Lower Extremity Strength Assessment Right Impaired Hip 4-/5 Knee 3+/5 Sensation Assessment Sensation Gross Sensation WNL Muscle Tone Muscle Tone WNL Yes M6 PT-IP Treatment Start: 03/07/21 11:19 Freq: NEEDED Status: Active Protocol: Document 03/07/21 08:45 AB (Rec: 03/07/21 11:33 AB [email or web address]) Physical Therapy Treatment Exercises Exercises Heel Slides Education Education Provided Precautions,Weight Bearing Status,Post-Op Packet,Safety M7 PT-IP Assessment and Plan Start: 03/07/21 11:19 Freq: NEEDED Status: Active Protocol: Document 03/07/21 08:45 AB (Rec: 03/07/21 11:33 AB [email or web address]) PT Summary Assessment and Plan Potential Rehabilitation Potential Good Status of Condition at Evaluation Stable Summary Impairments Pain,ROM,Strength,Balance, Coordination,Sensation,Tone, Cognition,Bed Mobility, Transfers,Gait,Activity Tolerance Assessment Summary pt requiring CGA with mobility using fWW but with confusion affecting safety awareness and mobility independence. will continue to assess progress. pt plans to go to [facility] and caregivers will be available for assistance when needed. Son is informed and aware of pt's equipement needs and assistance level. Goals Bed Mobility Goal Independent Transfer Goal Independent,Front Wheeled Walker Gait Goal Independent,Front Wheel Walker Gait Distance 150 Days to Meet Goals 5 Frequency of Treatment Frequency Of Treatment Twice a Day Treatment Plan Physical Therapy Treatment Plan Bed Mobility Training,Transfer Training,Gait Training, Therapeutic Exercise,Balance Retraining,Post Op Education, Discharge Planning,Hot or Cold Pack,Neuromuscular Re-ed, Coordination Retraining,Manual Therapy Precautions Other Precautions RLE WBAT Recommendations To Nursing Amount of Assist Needed 1 Person Assist Discharge Recommendations PT Discharge Recommendations Home with 10/02 Assist Available,Home Health Transportation Needs at Discharge Private Vehicle
--- NOTE | 2021-03-07 12:40 | PT.IPTN ---
Current Diagnoses Unilateral primary osteoarthritis, right knee (03/06/21) Surgery Performed Operation Date: 03/06/21 10:45 Actual Procedures p Total Knee Arthroplasty(Right) - Inga Hood MD Physical Therapy Treatment Note M2 PT-IP Current Condition Start: 03/07/21 11:19 Freq: NEEDED Status: Active Protocol: Document 03/07/21 08:45 AB (Rec: 03/07/21 11:33 AB [email or web address]) Physical Therapy Current Condition Current Condition Evaluation Date 03/07/21 Treatment Diagnosis s/p R TKA; difficulty in walking Onset Date 03/06/21 Weight Bearing Status Weight Bearing Status Weight Bear as Tolerated Allowed Weight Bearing Amount (enter % RLE WBAT or #) (%) M3 PT-IP Subjective Start: 03/07/21 11:19 Freq: NEEDED Status: Active Protocol: Document 03/07/21 12:40 AB (Rec: 03/07/21 13:14 AB [email or web address]) Subjective Physical Therapy Visit Type Type Treatment Note Visit Start Time 12:40 Visit Stop Time 13:05 Total Visit Minutes 25 Number of PHLEBOTOMY SERVICES TECHNICIAN Visits 0 Physical Therapy Visit Comments Patient Comments agreeable to do PT Therapy Pain Assessment Pain When Pain Assessed At Rest Pain Present Pain Present Pain Reported Location RIGHT KNEE Intensity 7 Scale Used Numeric (0 - 10) Pain Management Techniques Apply Cold,Modification of Treatment,Re-positioning, Timing of Activity with Medications M4 PT-IP Mobility and Gait Start: 03/07/21 11:19 Freq: NEEDED Status: Active Protocol: Document 03/07/21 12:40 AB (Rec: 03/07/21 13:14 AB [email or web address]) PT-Bed Mobility Assessment Supine to Sit Supine to Sit Standby Assistance Sit to Supine Sit to Supine Standby Assistance PT-Transfer Assessment Sit to and From Stand Sit to and from Stand Standby Assistance,Contact Guard Assistance,1 Person Assistance,Use of Upper Extremities Equipment Transfer Assistive Device Gait Belt,Front Wheeled Walker Orthotic/Prosthetic Devices or Brace: No Transfers Transfer Destination Bed,Chair Transfer Technique Stand Step Pivot Transfer Ability Level of Assist Standby Assistance,Contact Guard Assistance,1 Person Assistance Comments Mobility Comments pt sitting on chair an d agreeable to do PT. c/o 4-5 pain initially but increased to 7/10 with mobility. pt refused to take stronger pain meds and just had advil. son in room with pt. completed RLE heel slides prior to mobility. pt completed sit to stand SBA to CGA and ambulated in room using FWW SBA to CGA ~ 30 ft. unable to ambulate more due to increase pain. demonstrated sit<>supine SBA and cues. pt completed sit to stand from bed and step transfer to chair using FWW sBA to CGA. positioned pt on chair. call light and table placed within reach. Left pt with son in room. Gait Assessment Gait Gait Assistance Required: Standby Assistance,Contact Guard Assist Distance (Feet) 30 Able to Maintain Weight Bearing Status Yes During Gait Assistive Devices Assistive Device Gait Belt,Front Wheeled Walker Orthotic/Prosthetic Devices or Brace: No Gait Deviations General Gait Pattern Decreased Stride Length, Decreased Feet Clearance,Step- to Gait Factors Limiting Gait Function Factors Limiting Gait Function Decreased Activity Tolerance, Decreased Strength,Limited Range of Motion,Pain,Poor Balance,Poor Safety Awareness M5 PT-IP Objective Assessments Start: 03/07/21 11:19 Freq: NEEDED Status: Active Protocol: Document 03/07/21 08:45 AB (Rec: 03/07/21 11:33 [facility] Orientation Orientation/Cognition Level of Alertness Alert Orientation Name Language Function Ability No Deficits Noted Safety Awareness Decreased Safety Awareness Memory Description Short Term Impaired Comments with confusion Gross Range of Motion Lower Extremity ROM Impairments R knee extension: ~ 15-20 deg less to 0 R knee flexion: ~ 70 deg Strength Lower Extremity Strength Assessment Right Impaired Hip 4-/5 Knee 3+/5 Sensation Assessment Sensation Gross Sensation WNL Muscle Tone Muscle Tone WNL Yes M6 PT-IP Treatment Start: 03/07/21 11:19 Freq: NEEDED Status: Active Protocol: Document 03/07/21 12:40 AB (Rec: 03/07/21 13:14 AB [email or web address]) Physical Therapy Treatment Exercises Exercises Heel Slides Education Education Provided Safety M7 PT-IP Assessment and Plan Start: 03/07/21 11:19 Freq: NEEDED Status: Active Protocol: Document 03/07/21 12:40 AB (Rec: 03/07/21 13:14 AB [email or web address]) PT Summary Assessment and Plan Potential Rehabilitation Potential Good Summary Impairments Pain,ROM,Strength,Balance, Coordination,Sensation,Tone, Cognition,Bed Mobility, Transfers,Gait,Activity Tolerance Progress Towards Goals Slow Progress due to Pain Assessment Summary pt requiring SBA to CGA with mobility. pt plans to go to [facility] and will have assistance as needed. Son stated that he can inform them on pt's mobility and assitance needed. pt also has HHPT set up. Goals Bed Mobility Goal Independent Transfer Goal Independent,Front Wheeled Walker Gait Goal Independent,Front Wheel Walker Gait Distance 150 Days to Meet Goals 5 Frequency of Treatment Frequency Of Treatment Twice a Day Treatment Plan Physical Therapy Treatment Plan Bed Mobility Training,Transfer Training,Gait Training, Therapeutic Exercise,Balance Retraining,Post Op Education, Discharge Planning,Hot or Cold Pack,Neuromuscular Re-ed, Coordination Retraining,Manual Therapy Precautions Other Precautions RLE WBAT Recommendations To Nursing Amount of Assist Needed 1 Person Assist Discharge Recommendations PT Discharge Recommendations Home with 10/02 Assist Available,Home Health Transportation Needs at Discharge Private Vehicle
== END 2021-03-07 14:13 | disposition home or self-care (01) | DRG 470 ==
LOC: OR 08:37 → AC 08:37
PROVIDERS: Admitting Provider Orthopaedic Surgery; Family Provider Family Medicine; PCP Family Medicine; Referring Provider Orthopaedic Surgery; Visit Provider Orthopaedic Surgery
PROC: 0SRC0JZ Replacement of Right Knee Joint with Synthetic Substitute, Open Approach (ICD-10-PCS; CPT 27447; principal; 2021-03-06 10:45)
DX: M17.11 Unilateral primary osteoarthritis, right knee (principal); G20 Parkinson's disease; E11.9 Type 2 diabetes mellitus without complications; G47.33 Obstructive sleep apnea (adult) (pediatric); F32.9 Major depressive disorder, single episode, unspecified; I10 Essential (primary) hypertension; E03.9 Hypothyroidism, unspecified; Z20.822 Contact with and (suspected) exposure to COVID-19; Z86.12 Personal history of poliomyelitis
CPT/HCPCS: 36415; 64450; 73560; 82962; 85014; 85018; 87635; 93005; 93010; 97116; 97161; 97530; C1776; C9803; C9290; J0690; J1170; J1885; J2060; J3010

== ENCOUNTER 2021-03-10 13:33 | Emergency (ER) | payer MEDICARE, OTHER, SELFPAY ==
[2021-03-06 15:13] VITALS: BMI 33.6
[2021-03-10 14:15] VITALS: BP 135/70; PULSE 87; RESP 18; TEMP 36.4; O2SAT 97; BMI 30.2
--- NOTE | 2021-03-10 14:18 | DI.RAD.S_ITS ---
PROCEDURE: XR KNEE RT 3V INDICATIONS: POST-OP pain after injury TECHNIQUE: 3 views of the knee were acquired. COMPARISON: [facility], CR, XR KNEE RT 1TO2V, 03/06/2021, 13:07. [facility], CR, KNEE 3V RIGHT, 08/23/2007, 17:34. FINDINGS: Postsurgical changes of right total knee arthroplasty. There is a joint effusion. Few small locules of air area in the joint also, not unexpected. There is no periprosthetic fracture or other acute complicating hardware feature demonstrated. IMPRESSION: No acute finding. Postsurgical changes of right total knee arthroplasty. Dictated by: Jay Jay Kim M.D. on 03/10/2021 at 14:59 Approved by: Jay Jay Kim M.D. on 03/10/2021 at 15:00
--- NOTE | 2021-03-10 18:02 | ED_ITS ---
HPI - Extremity Injury (Lower) General Chief Complaint: Extremity Injury, Lower Stated Complaint: hurt knee that she had surgery on friday/swollen Time Seen by Provider: 03/10/21 17:51 Source: patient Mode of arrival: Wheelchair Limitations: no limitations History of Present Illness HPI Narrative: Patient is a 80-year-old female with history of Parkinson's who is status post right TKA day 4. Presenting with worsening pain. She says she has been in assisted living she tried to get up by herself stone was around to help her and her knee twisted. She had intense pain afterwards. She did take 1 of her oxycodone 45 minutes ago when she does it has not helping. She has been the emergency but department for 4 hours. She is having some swelling in her knee. No numbness tingling or weakness. Related Data Home Medications Medication Instructions Recorded Confirmed Respironics System One 60 Series #1 ea 10/15/18 05/19/19 BIPAP bupropion HCl 150 mg tablet,12 hr 150 mg PO BID 02/02/19 03/06/21 sustained-release levothyroxine 88 mcg tablet 88 mcg PO DAILY 02/02/19 03/06/21 carbidopa 25 mg-levodopa 100 mg 1 tab PO TID 02/27/21 03/06/21 tablet Previous Rx's Medication Instructions Recorded acetaminophen 325 mg tablet 650 mg PO TID #60 tab 03/07/21 aspirin 81 mg tablet,delayed 81 mg PO BID #60 tab 03/07/21 release docusate sodium 100 mg capsule 100 mg PO BID #30 cap 03/07/21 (DOK) ibuprofen 400 mg tablet 400 mg PO Q4HR #60 tab 03/07/21 oxycodone 5 mg tablet 5 mg PO Q3HR PRN #60 tab 03/07/21 Allergies Allergy/AdvReac Type Severity Reaction Status Date / Time Sulfa (Sulfonamide Allergy Severe Unknown-occured Verified 03/10/21 18:25 Antibiotics) >50 years [SULFA (SULFONAMIDE ago ANTIBIOTICS)] niacin [NIACIN] AdvReac Mild FLUSH Verified 03/10/21 18:25 Review of Systems Review of Systems Narrative: GENERAL: Denies chills,fever HEENT: Denies throat pain RESPIRATORY: Denies dyspnea, cough, wheezing CARDIOVASCULAR: Denies chest pain, palpitations GASTROINTESTINAL: Denies nausea, vomiting MUSCULOSKELETAL: See HPI SKIN: No rash, no laceration, no pruritus NEUROLOGIC: Denies weakness, dizziness, headache, numbness 8 point review of systems is negative except for those stated above and HPI Patient History Medical History Anxiety Autoimmune disorder Depression Diabetes Dyslipidemia H/O post-polio syndrome HTN (hypertension) Hypothyroid Obstructive sleep apnea of adult Osteoarthritis Parkinson's disease (2019) Weakness Surgical History H/O cervical spinal arthrodesis History of cataract removal with insertion of prosthetic lens History of surgery (02/2016) History of tonsillectomy Status post laparoscopic cholecystectomy Status post trigger finger release Social History household members: none occupational status: previously employed Smoking Status: Never smoker alcohol intake: never substance use type: does not use caffeine: Yes (1 cup daily) Type(s) of exercise: swimming (currently on hold) frequency: 3-4 times per week Smoking Status: Never smoker Substance Use Type: does not use Exam Initial Vital Signs Initial Vital Signs: Vital Signs Temperature 97.5 F L 03/10/21 14:15 Pulse Rate 87 03/10/21 14:15 Respiratory Rate 18 03/10/21 14:15 Blood Pressure 135/70 03/10/21 14:15 Pulse Oximetry 97 03/10/21 14:15 GENERAL: Alert 80-year-old female CARDIOVASCULAR: peripheral pulses in tact, cap refill <2 sec RESPIRATORY: No respiratory distress, speaks in full sentences without difficulty EXTREMITIES: Normal range of motion, no clubbing or edema. Neurovascularly intact Right knee postoperative swelling noted slightly warm to touch no erythema distal pedal pulse intact dressing intact NEUROLOGICAL: Cranial nerves II through XII grossly intact. Normal gait and speech. SKIN: Warm, dry, no petechiae, no rashes or lesions. Course Orders Ordered: ED Orders 03/10/21 14:18 XR knee RT 3V Stat Discontinued Medications Hydromorphone HCl (Hydromorphone 1 Mg Inj) 1 mg IM NOW ONE Stop: 03/10/21 17:59 Last Admin: 03/10/21 18:24 Dose: 1 mg Documented by: MELVIN Vital Signs Vital signs: Vital Signs - 8 hr 03/10/21 14:15 03/10/21 18:41 Temperature 97.5 F L Pulse Rate 87 76 Respiratory Rate 18 16 Blood Pressure 135/70 161/72 H Pulse Oximetry 97 99 MDM - Extremity Injury (Lower) Imaging Data Extremity x-ray #1: Radiologist's Impression: PROCEDURE: XR KNEE RT 3V INDICATIONS: POST-OP pain after injury TECHNIQUE: 3 views of the knee were acquired. COMPARISON: [facility], , XR KNEE RT 1TO2V, 03/06/2021, 13:07. [facility], , KNEE 3V RIGHT, 08/23/2007, 17:34. FINDINGS: Postsurgical changes of right total knee arthroplasty. There is a joint effusion. Few small locules of air area in the joint also, not unexpected. There is no periprosthetic fracture or other acute complicating hardware feature demonstrated. IMPRESSION: No acute finding. Postsurgical changes of right total knee arthroplasty. Dictated by: Jay Jay Kim M.D. on 03/10/2021 at 14:59 Approved by: Jay Jay Kim M.D. on 03/10/2021 at 15:00 [facility] Narrative Medical decision making narrative: Based on patient's history signs and symptoms is most consistent with lichen knee strain. Do not suspect DVT at this time. It is slightly swollen but not erythematous no sign of infection at this time pain. Discharge Plan Departure Patient Disposition: Home Clinical Impression: Post-operative pain Right knee sprain Qualifiers: Encounter type: initial encounter Involved ligament of knee: other ligament Qualified Code(s): S83.8X1A - Sprain of other specified parts of right knee, initial encounter Instructions: DI for Knee Sprain Activity Restrictions/Additional Instructions: *You have been diagnosed with right knee sprain postoperative pain *What to do: At this time increase activity as tolerated be sure to get help well moving. Follow-up with orthopedics as scheduled however call them on Friday and let them know what happened. Expect to be sore is for the next couple of days *Continue to take medications as directed *Follow up with your primary care provider in 2-3 days *Return to ER if you should have increasing pain redness fever more than 100.4 or any new, worsening or concerning symptoms Prescriptions: No Action bupropion HCl 150 mg tablet sustained-release 12 hr 150 mg PO BID RF: 0 levothyroxine 88 mcg tablet 88 mcg PO DAILY RF: 0 carbidopa-levodopa 25-100 mg Tablet 1 tab PO TID RF: 0 acetaminophen 325 mg Tablet 650 mg PO TID Qty: 60 RF: 0 aspirin 81 mg Tablet,Delayed Release (Dr/Ec) 81 mg PO BID Qty: 60 RF: 0 ibuprofen 400 mg Tablet 400 mg PO Q4HR Qty: 60 RF: 0 docusate sodium [DOK] 100 mg Capsule 100 mg PO BID Qty: 30 RF: 0 oxycodone 5 mg Tablet 5 mg PO Q3HR PRN (Reason: Pain, Moderate (4-6)) Qty: 60 RF: 0 (DME) Respironics System One 60 Series BIPAP Qty: 1 RF: 0 Referrals: Jarvis Renee MD [Primary Care Provider] - Inga Hood MD [Physician] -
[2021-03-10] MEDS: HYDROMORPHONE 1 MG INJ IM (18:24)
[2021-03-10 18:41] VITALS: BP 161/72; PULSE 76; RESP 16; O2SAT 99
== END 2021-03-10 18:43 | disposition home or self-care (01) ==
PROVIDERS: Emergency Provider Emergency Medicine; Family Provider Family Medicine; PCP Family Medicine
DX: G89.18 Other acute postprocedural pain (principal); S83.8X1A Sprain of other specified parts of right knee, initial encounter; X50.1XXA Overexertion from prolonged static or awkward postures, initial encounter
CPT/HCPCS: 73562; 96372; 99283; J1170

== ENCOUNTER → 2022-12-18 11:24 | Outpatient (CLI) | payer MEDICARE, OTHER, SELFPAY ==
[2022-12-12 10:29] VITALS: BMI 33.6
--- NOTE | 2022-12-18 | DI.RAD.S_ITS ---
PROCEDURE: FL BARIUM SWALLOW INDICATIONS: Epigastric pain COMPARISON: [facility], [place], ABDOMEN/PELVIS WITH CONTRAST, 02/27/2008, 13:22. FINDINGS: Function: Esophageal peristalsis is within normal limits. No elicited gastroesophageal reflux. However, there was spontaneous esophageal reflux. Barium tablet is held up at the gastroesophageal junction for a brief time. The contrast reflexes to the upper esophagus. Patient reports this in stations at the tablet is stuck at the lower neck. Morphology: Air-contrast images demonstrate normal mucosal morphology. Single contrast views show no convincing esophageal strictures, extrinsic mass effects, or diverticula. Limited images of the stomach demonstrate normal appearance. IMPRESSION: 1. Spontaneous gastroesophageal reflux to the level of the upper esophagus. 2. No significant esophageal dysmotility demonstrated. Dictated by: Kamaljit Arreaga M.D. on 12/18/2022 at 17:41 Approved by: Kamaljit Arreaga M.D. on 12/18/2022 at 17:45
== END ==
PROVIDERS: Family Provider Family Medicine; PCP Student in an Organized Health Care Education/Training Program; Referring Provider Student in an Organized Health Care Education/Training Program; Visit Provider Student in an Organized Health Care Education/Training Program
DX: R10.13 Epigastric pain (principal); K21.9 Gastro-esophageal reflux disease without esophagitis
CPT/HCPCS: 74220